=== PATIENT | female | born 1965 | race Caucasian/White ===

== ENCOUNTER 2022-11-26 13:21 | Outpatient (CLI) | payer MEDICARE, SELFPAY ==
--- NOTE | 2022-11-26 13:36 | US_ITS ---
WS: [id number] US transvaginal [id number] HISTORY: ABNORMAL VAGINAL BLEEDING/POSTMENOPAUSAL COMPARISON: None available. Uterus: 7.2 cm x 4.2 cm x 4.3 cm. Normal size anteverted uterus. No fibroid or mass. Endometrium: 0.8 cm. Endometrium is measuring slightly greater in size than appropriate for a postmen opausal patient. No mass or increased vascularity is identified. Neither ovary is identified. There are no adnexal masses. No free fluid in the pelvis. IMPRESSION: 1. Endometrium is measuring slightly greater than normal for a postmenopausal patient. With history o f abnormal vaginal bleeding direct visualization and biopsy should be performed. 2. Neither ovary is identified. No pelvic mass.
== END 2022-11-26 13:22 | disposition home or self-care (01) ==
PROVIDERS: PCP Family Medicine; Visit Provider Nurse Practitioner Family
DX: N95.0 Postmenopausal bleeding (principal)
CPT/HCPCS: 76830

== ENCOUNTER 2024-05-30 13:14 | Outpatient (CLI) | payer MEDICARE, SELFPAY ==
--- NOTE | 2024-05-30 13:16 | MM_ITS ---
WS: [id number] Bilateral screening 3D tomosynthesis digital mammogram, 05/30/2024 1:23 PM Clinical Data: SCREENING Comparison: 01/20/2023 Findings: No spiculated masses or clustered calcifications are seen. There are no secondary signs of carcinoma. MM/MM scr BI tomosynthesis [id number] Impression: Negative bilateral mammogram unchanged. Recommend annual screening mammograms. BIRADS: 1 - Negative. FOLLOW UP: 1 Year Follow-up DENSITY: There are scattered areas of fibroglandular density. The CAD plan checker was used
== END 2024-05-30 13:15 | disposition home or self-care (01) ==
PROVIDERS: PCP Family Medicine; Visit Provider Nurse Practitioner Family
DX: Z12.31 Encounter for screening mammogram for malignant neoplasm of breast (principal); R92.323 Mammographic fibroglandular density, bilateral breasts
CPT/HCPCS: 77063; 77067

== ENCOUNTER 2024-07-19 11:34 | Emergency (ER) | payer MEDICARE, SELFPAY ==
[2024-07-19] VITALS (14 sets, daily range): BP systolic 102–140; BP diastolic 50–91; PULSE 77–93; RESP 16–18; TEMP 36.7; O2SAT 95–98; BMI 41.1
--- NOTE | 2024-07-19 12:12 | CTR_ITS ---
PROCEDURE INFORMATION: Exam: CT Abdomen And Pelvis Without Contrast Exam date and time: 07/19/2024 12:37 PM Age: 58 years old Clinical indication: Abdominal pain; Localized; Right upper quadrant (ruq); Prior surgery; Surgery date: 6+ months; Surgery type: Appy; Ruq pain; Per PT, she has been told her gb needs to be removed but has hesitated to do so; Additional info: Abdominal pain, right TECHNIQUE: Imaging protocol: Computed tomography of the abdomen and pelvis without contrast. Radiation optimization: All CT scans at this facility use at least one of these dose optimization techniques: automated exposure control; mA and/or kV adjustment per patient size (includes targeted exams where dose is matched to clinical indication); or iterative reconstruction. COMPARISON: US transvaginal [id number] 11/26/2022 2:23 PM RADIATION DOSE METRICS: Total DLP (mGy-cm): 1096.8 FINDINGS: Lungs: Lung bases are clear. No pleural effusion. Liver: Normal. No mass. Gallbladder and biliary ducts: A 3 cm gallstone is noted in the gallbladder but the gallbladder wall shows no evidence of inflammation. Pancreas: Normal. No ductal dilation. Spleen: Normal. No splenomegaly. Adrenal glands: Normal. No mass. Kidneys and ureters: Normal. No hydronephrosis. Stomach and bowel: Unremarkable. No obstruction. No mucosal thickening. Appendix: There is a rounded 6.8 cm diameter collection of fluid and air within the right lower quadrant. There is surrounding inflammation. The collection lies at the expected location of the appendix but the appendix can not be identified. Intraperitoneal space: Unremarkable. No free air. No significant fluid collection. Vasculature: Unremarkable. No abdominal aortic aneurysm. Lymph nodes: Unremarkable. No enlarged lymph nodes. Urinary bladder: Unremarkable as visualized. Reproductive: Unremarkable as visualized. Bones/joints: Unremarkable. No acute fracture. Soft tissues: Unremarkable. CT/CT abdomen pelvis wo con [id number] IMPRESSION: 1. 6.8 cm right lower quadrant abscess most consistent with the appendiceal abscess 2. Cholelithiasis
[2024-07-19 12:22] LABS: Basophils # 0.1 10^3/uL (0.0-0.1); Basophils % 0.7 %; Eosinophils # 0.2 10^3/uL (0.0-0.8); Hematocrit 49.8 % (36-47); Lymphocytes # 2.5 10^3/uL (0.8-4.8); Lymphocytes % 16.9 %; Mean Corpuscular HGB Conc 32.9 g/dL (30-55); Mean Corpuscular Hemoglobin 32.8 pg (27-33); Mean Corpuscular Volume 99.6 fl (85-98); Mean Platelet Volume 8.4 fL (7.4-10.4); Monocytes # 0.8 10^3/uL (0.2-0.9); Monocytes % 5.6 %; Neutrophils # 11.11 10^3/uL (1.8-7.7); Neutrophils % 74.7 %; Nucleated Red Blood Cells % 0 %; Platelet Count 405 10^3/cmm (157-399); Red Cell Distribution Width 13.5 % (12.1-15.1); White Blood Count 14.88 10^3/uL (3.29-11.43)
[2024-07-19 12:37] LABS: Alanine Aminotransferase 24 U/L (0-33); Albumin Level 3.3 g/dL (3.5-5.2); Alkaline Phosphatase 130 U/L (35-105); Anion Gap 17.5 (5-19); Aspartate Amino Transferase 17 U/L (0-32); Blood Urea Nitrogen 9 mg/dL (6-20); Calcium 9.2 mg/dL (8.5-10.5); Carbon Dioxide 25 mmol/L (22-29); Chloride 99 mmol/L (98-107); Globulin 4.1 g/dL (1.3-4.6); Glomerular Filtration Rate 103.4 mL/min (90-130); Glucose 111 mg/dL (65-115); Lipase 27 U/L (13-60); Osmolality Calculated 283 mOsm/kg (285-295); Potassium 4.5 mmol/L (3.5-5.1); Sodium 137 mmol/L (136-145); Total Bilirubin 0.6 mg/dL (0.15-1.2); Total Protein 7.4 g/dL (6.6-8.7)
[2024-07-19] MEDS: sodium chloride 0.9% 1,000 ML 999 ML IV (12:44)
[2024-07-19] MEDS: morphine 4 mg/mL SDV 1 mL IVP (12:45)
[2024-07-19] MEDS: ondansetron 2 mg/ML SDV 2 mL 4 MG IVP (12:45)
--- NOTE | 2024-07-19 13:47 | PM.CONSULT ---
Providers/Reason For Consult Consulting Physician/Specialty*: General Surgery Reason for Consult*: Intra-abdominal abscess Primary Care Provider: Pastora Abrams DO History of Present Illness History of Present Illness Kaylee Alexander is a 58 year old female who presents to the hospital with 1 week of right lower quadrant abdominal pain associated with some chills no fever, she visited an outside doctor and was placed on antibiotics she finished her antibiotic course yesterday and after that the pain has gotten worse. On evaluation emergency department CT scan abdomen pelvis was done and the CT showed evidence of a large Omid cecal abscess likely consistent with a periappendiceal abscess. I was consulted for this finding Review of Systems General: Reports: 10 or more systems reviewed and unremarkable except in HPI and below Medications/Allergies Home Medications ?Medication ?Instructions ?Recorded ?Confirmed ?Last Taken ?Type aspirin 81 mg tablet,delayed 81 mg PO DAILY 01/25/23 01/25/23 Unknown History release (Adult Low Dose Aspirin) black cohosh root extract 40 mg 40 mg PO DAILY 01/25/23 01/25/23 Unknown History capsule buspirone 10 mg tablet 10 mg PO BID 01/25/23 01/25/23 Unknown History cyclobenzaprine 10 mg tablet 10 mg PO TID 01/25/23 01/25/23 Unknown History gabapentin enacarbil 300 mg 300 mg PO BID 01/25/23 01/25/23 Unknown History tablet,extended release phentermine 15 mg capsule 15 mg PO DAILY 01/25/23 01/25/23 Unknown History Allergies Allergy/AdvReac Type Severity Reaction Status Date / Time No Known Allergies Allergy Verified 01/25/23 13:31 PFSH Acute PFSH: Family History (Updated 01/12/23 @ 10:33 by Eden Kirk) Denies family history of Colon cancer Thyroid cancer Diabetes Heart disease Hyperlipidemia Breast cancer Hypertension Uterine cancer Stroke Vitals/I&O/Wt Last Vital Signs Temp 98.0 F 07/19/24 11:44 Pulse 79 07/19/24 13:37 Resp 18 07/19/24 12:45 BP 134/79 07/19/24 13:37 Pulse Ox 97 07/19/24 13:37 O2 Del Method Room Air 07/19/24 13:37 Weight last 48 hrs Weight 240 lb Physical Exam Narrative: Abdominal examination shows evidence of tenderness in the right lower quadrant and right flank there is no peritonitis at this moment, there is no rebound tenderness. Data 07/19/24 11:50 07/19/24 11:50 A&P Assessment and plan (1) Abscess, periappendiceal: Plan After complete history, physical examination and review of all available clinical data the following is my assessment. This is a 58-year-old female who presents to the hospital with a possible perforated appendicitis with abscess formation. Patient has extensive medical history and in addition to that when she was 15 years old she got an open appendectomy for a ruptured appendix, while we do not have the records for this procedure is highly likely that since appendix had rupture a complete appendectomy was not possible and we are dealing with appendicitis of the remanent part of the differential could also be a ruptured diverticulum of the cecum. Her white count is 14,000, currently vital signs are stable. With this findings our recommendation will be to proceed with interventional radiology drainage of the abscess and inpatient management with IV antibiotics. Unfortunately at this time we do not have immediate IR availability for drainage and therefore the recommendation will be for transfer to higher level of care for additional expertise with interventional radiology and subsequent management. In the interim I recommend that the patient is started on broad-spectrum antibiotics and fluids, she should be kept n.p.o. in anticipation for drainage as soon as she presents to outside hospital. At the moment of my evaluation patient is stable there is no contraindication for acute transfer. PDMP PDMP Reviewed: Not Reviewed Coding Level of Care Code Acute Code for Chg Fwd Diagnoses Abscess, periappendiceal K35.33
[2024-07-19] MEDS: piperacillin-tazobactam 3.375 GM in sodium chloride 0.9% (plus) 50 ML IV (13:51)
[2024-07-19] MEDS: vancomycin 1,500 MG/300 ML PIGGYBACK 200 MG IV (13:52)
--- NOTE | 2024-07-19 15:32 | ED_ITS ---
HPI - Abdominal Pain 2 General: Chief Complaint: Abdominal Pain Stated Complaint: gallbladder attack Time Seen by Provider: 07/19/24 11:50 History of Present Illness: This patient is a 58-year-old white female who presents to the emergency department complaining of right-sided abdominal pain that radiates around to the back. She states this started a week ago. She has not had any associated nausea or vomiting. She has had some diarrhea as well as some constipation. No dysuria. She had some blood in her urine last week and was treated. She states she has been treated for UTI. No fever. Past surgical history includes an appendectomy. Associated Symptoms: Reports constipation and diarrhea Related Data Home Medications ?Medication ?Instructions ?Recorded ?Confirmed aspirin 81 mg tablet,delayed 81 mg PO DAILY 01/25/23 0 07/19/24 release (Adult Low Dose Aspirin) cyclobenzaprine 10 mg tablet 10 mg PO TID 01/25/23 albuterol sulfate 90 mcg/actuation 2 puff inhalation Q 6H PRN 07/19/24 07/19/24 aerosol inhaler Shortness Of Breath atorvastatin 20 mg tablet 20 mg PO DAILY 07/19/2406/22 buspirone 15 mg tablet 15 mg PO TID 07/19/24 empagliflozin 25 mg tablet 25 mg PO QAM 07/19/2407/19 (Jardiance) gabapentin 300 mg capsule 300 mg PO QID 07/19/2407/19 guanfacine 2 mg tablet,extended 2 mg PO DAILY 07/19/24 07/19/24 release 24 hr lisinopril 20 mg tablet 20 mg PO DAILY 07/19/2406/22 phentermine 37.5 mg capsule 37.5 mg PO DAILY 07/19/24 07/19/24 Allergies Allergy/AdvReac Type Severity Reaction Status Date / Time No Known Allergies Allergy Verified 01/25/23 13:31 Review of Systems 2 General: Reports: 10 or more systems reviewed and unremarkable except in HPI and below GI: Reports: abdominal pain, diarrhea and constipation PFSH ED 2 PFSH: Family History (Updated 01/12/23 @ 10:33 by Eden Kirk) Denies family history of Colon cancer Thyroid cancer Diabetes Heart disease Hyperlipidemia Breast cancer Hypertension Uterine cancer Stroke Physical Exam 2 Const: COMMON NORMALS: no acute distress, patient oriented x3 and no limitations GENERAL APPEARANCE: cooperative and comfortable HENMT: COMMON NORMALS: normocephalic, atraumatic, Normal nasal mucous membranes and turbinates present, moist oral mucous membranes and oropharynx normal HEAD & SCALP: normal to inspection, normocephalic and atraumatic F JAYLA & SINUS: normal facial exam NOSE: Normal nasal mucous membranes and turbinates present Eye: COMMON NORMALS: Equal, round and reactive pupils present, EOMs intact bilaterally and conjunctivae normal GENERAL EYE: appearance normal, both eyes and all related structures CONJUNCTIVA: Yes conjunctivae normal PUPIL: Yes Equal, round and reactive pupils present Neck/C-Spine: COMMON NORMALS: supple and no JVD Chest: COMMONS NORMALS: normal inspection of the chest Resp: COMMON NORMALS: normal respiratory effort and clear to auscultation bilaterally AUSCULTATION: clear to auscultation bilaterally Cardio: COMMON NORMALS: no JVD, regular rate, regular rhythm, No gallops present (Cardio), No murmurs present (Cardio) and No rub (Cardio) RATE: r egular rate RHYTHM: regular rhythm GI: COMMON NORMALS: Soft to palpation AUSCULTATION: Yes normoactive bowel sounds PALPATION: Yes Soft to palpation, Yes Tenderness to palpation present (GI) (Mid right), No Guarding due to palpation present (GI) and No Rebound tenderness present : COMMON NORMALS: Yes no CVA tenderness BLADDER/KIDNEY EXAM: Yes no CVA tenderness Back/Pelvis: COMMON NORMALS: no CVA tenderness and thoracic and lumbar spine normal to inspection Extremity: COMMON NORMALS: normal to inspection Neuro: COMMON NORMALS: patient oriented x3 and CN's II-XII intact bilaterally Psych: COMMON NORMALS: mental status grossly normal, Normal thought process present and cooperative THOUGHT PROCESS: Normal thought process present Skin: COMMON NORMALS: no rashes or lesions noted, turgor normal and no jaundice GENERAL SKIN EXAM: no rashes or lesions noted and turgor normal Course 2 Vital Signs: Vital signs: Vital Signs Temperature 98.0 F 07/19/24 11:44 Pulse Rate 80 07/19/24 18:00 Respiratory Rate 16 07/19/24 18:00 Blood Pressure 102/50 07/19/24 18:00 Pulse Oximetry 97 07/19/24 18:00 Oxygen Delivery Me thod Room Air 07/19/24 18:00 MDM - Abdominal Pain Medical Decision Making CBC reveals a white blood cell count of 14.9. CMP was normal. CT scan of the abdomen pelvis was read by the radiologist. There is an abscess in the right lower quadrant in the area of what would be the appendix but obviously the appendix is gone due to her prior appendectomy. Radiologist read this as an appendiceal abscess. 6.8 cm. I discussed the case with Dr. Thompson, general surgeon. He discussed the case with the radiologist but we do not have IR available here. He recommends transferring the patient. Patient would like to go to [facility]. I discussed the case with Shivani with the hospitalist service. She has accepted the patient on behalf of Dr. Garcia. Patient will be transferred as soon as the bed is available and we have transportation. Patient has gotten a liter of fluid, Zofran, morphine, vancomycin and Zosyn. She is stable. Lab Data 07/19/24 11:50 07/19/24 11:50 Labs/Radiology: Radiology Impressions Abdomen/Pelvis CT 07/19/24 12:12 IMPRESSION: 1. 6.8 cm right lower quadrant abscess most consistent with the appendiceal abscess 2. Cholelithiasis ADDENDUM: 07/19/24 1300 COMMENT: THIS REPORT CONTAINS FINDINGS THAT MAY BE CRITICAL TO PATIENT CARE. The exam findings were verbally communicated by me to NINA MCMAHON via telephone conference at 12:59 PM CDT on 07/19/2024. The findings were acknowledged and understood. Laboratory Results WBC 14.88 10^3/uL (3.29-11.43) H 07/19/24 11:50 RBC 5.00 10^6/uL (3.85-5.65) 07/19/24 11:50 Hgb 16.40 g/dL (11.27-16.99) 07/19/24 11:50 Hct 49.8 % (36-47) H 07/19/24 11:50 MCV 99.6 fl (85-98) H 07/19/24 11:50 MCH 32.8 pg (27-33) 07/19/24 11:50 MCHC 32.9 g/dL (30-55) 07/19/24 11:50 RDW 13.5 % (12.1-15.1) 07/19/24 11:50 Plt Count 405 10^3/cmm (157-399) H 07/19/24 11:50 MPV 8.4 fL (7.4-10.4) 07/19/24 11:50 Neut % (Auto) 74.7 % 07/19/24 11:50 Lymph % (Auto) 16.9 % 07/19/24 11:50 [place] % (Auto) 5.6 % 07/19/24 11:50 Eos % (Auto) 1.0 % 07/19/24 11:50 Baso % (Auto) 0.7 % 07/19/24 11:50 Neut # (Auto) 11.11 10^3/uL (1.8-7.7) H 07/19/24 11:50 Lymph # (Auto) 2.5 10^3/uL (0.8-4.8) 07/19/24 11:50 [place] # (Auto) 0.8 10^3/uL (0.2-0.9) 07/19/24 11:50 Eos # (Auto) 0.2 10^3/uL (0.0-0.8) 07/19/24 11:50 Baso # (Auto) 0.1 10^3/uL (0.0-0.1) 07/19/24 11:50 Nucleated RBC % (auto) 0 % 07/19/24 11:50 Nucleated RBCs # 0.0 /100WBC 07/19/24 11:50 Sodium 137 mmol/L (136-145) 07/19/24 11:50 Potassium 4.5 mmol/L (3.5-5.1) 07/19/24 11:50 Chloride 99 mmol/L (98-107) 07/19/24 11:50 Carbon Dioxide 25 mmol/L (22-29) 07/19/24 11:50 Anion Gap 17.5 (5-19) 07/19/24 11:50 BUN 9 mg/dL (6-20) 07/19/24 11:50 Creatinine 0.6 mg/dL (0.5-0.9) 07/19/24 11:50 GFR Calculation 103.4 mL/min (90-130) 07/19/24 11:50 Glucose 111 mg/dL (65-115) 07/19/24 11:50 Calculated Osmolality 283 mOsm/kg (285-295) L 07/19/24 11:50 Calcium 9.2 mg/dL (8.5-10.5) 07/19/24 11:50 Total Bilirubin 0.6 mg/dL (0.15-1.2) 07/19/24 11:50 AST 17 U/L (0-32) 07/19/24 11:50 ALT 24 U/L (0-33) 07/19/24 11:50 Alkaline Phosphatase 130 U/L (35-105) H 07/19/24 11:50 Total Protein 7.4 g/dL (6.6-8.7) 07/19/24 11:50 Albumin 3.3 g/dL (3.5-5.2) L 07/19/24 11:50 Globulin 4.1 g/dL (1.3-4.6) 07/19/24 11:50 Lipase 27 U/L (13-60) 07/19/24 11:50 Urine Color Yellow (Yellow) 07/19/24 15:41 Urine Appearance Clear (CLEAR) 07/19/24 15:41 Urine pH 5.5 (5-7) 07/19/24 15:41 Ur Specific [place] 1.013 (1.005-1.030) 07/19/24 15:41 Urine Protein Negative (Negative) 07/19/24 15:41 Urine Glucose (UA) Negative (Normal) 07/19/24 15:41 Urine Ketones Trace (Negative) 07/19/24 15:41 Urine Blood Negative (Negative) 07/19/24 15:41 Urine Nitrate Negative (Negative) 07/19/24 15:41 Urine Bilirubin Negative (Negative) 07/19/24 15:41 Urine Urobilinogen 0.2 mg/dL (Negative) 07/19/24 15:41 Ur Leukocyte Esterase Negative (Negative) 07/19/24 15:41 Urine RBC 0-2 /hpf (0-2) 07/19/24 15:41 Urine WBC 0-5 /hpf (0-5) 07/19/24 15:41 Ur Squamous Epith Cells 0-5 /hpf (0-5) 07/19/24 15:41 Amorphous Sediment Not Reportable 07/19/24 15:41 Urine Bacteria None seen /hpf (NONE) 07/19/24 15:41 Hyaline Casts 0.40 /lpf 07/19/24 15:41 All radiology interpretation(s) finalized by discharge Discharge Plan Discharge Condition: Stable Prescriptions: No Action cyclobenzaprine 10 mg tablet 10 mg PO TID aspirin [Adult Low Dose Aspirin] 81 mg tablet,delayed release (DR/EC) 81 mg PO DAILY atorvastatin 20 mg tablet 20 mg PO DAILY lisinopril 20 mg tablet 20 mg PO DAILY gabapentin 300 mg capsule 300 mg PO QID albuterol sulfate 90 mcg/actuation HFA aerosol inhaler 2 puff INHALATION Q6H PRN (Reason: Shortness Of Breath) phentermine 37.5 mg capsule 37.5 mg PO DAILY buspirone 15 mg Tablet 15 mg PO TID guanfacine 2 mg tablet extended release 24 hr 2 mg PO DAILY Jardiance 25 mg tablet 25 mg PO QAM Referrals: Pastora Abrams DO [Primary Care Provider, Family Practice] Print Language: Chinese Coding Level of Care Code ED Glass [employer] Engineer for Angelg Dina
[2024-07-19 15:56] LABS: Bilirubin Urine Negative (Negative); Blood Urine Negative (Negative); Glucose Urine UA Negative (Normal); Ketones Urine Trace (Negative); Leukocyte Esterase Urine Negative (Negative); Nitrate Urine Negative (Negative); Protein Urine Negative (Negative); Specific Gravity, Urine 1.013 (1.005-1.030); Urine Appearance Clear (CLEAR); Urine Color Yellow (Yellow); Urobilinogen Urine 0.2 mg/dL (Negative); pH Urine 5.5 (5-7)
[2024-07-19 16:04] LABS: Add Urine Microscopic? YES; Bacteria Urine None Seen /hpf; RBC Urine 0-2 /hpf (0-2); Squamous Epithelial Cell Urine 0-5 /hpf (0-5); WBC Urine 0-5 /hpf (0-5)
[2024-07-19] MEDS: nicotine 21 mg Patch 1 PATCH TRANSDERMA (17:00)
[2024-07-19] MEDS: HYDROmorphone 0.5 MG/0.5 ML INJ IVP ×2 (17:06→19:02)
--- NOTE | 2024-07-19 18:26 | PC.NURSE ---
pt NPO. aware.
--- NOTE | 2024-07-19 18:32 | PC.NURSE ---
Pt report called to [facility], pt has bed 3104-2 3A. PT report called to Lana Townsend RN at [facility].
[2024-07-19] MEDS: lactated ringers 1,000 ML 125 ML IV (19:03)
== END 2024-07-19 19:19 | disposition short-term general hospital (02) ==
PROVIDERS: Emergency Provider Emergency Medicine; PCP Family Medicine
DX: K35.33 Acute appendicitis with perforation, localized peritonitis, and gangrene, with abscess (principal); K80.20 Calculus of gallbladder without cholecystitis without obstruction; Z79.82 Long term (current) use of aspirin
CPT/HCPCS: 74176; 80053; 81001; 83690; 85025; 96365; 96366; 96367; 96375; 96376; 99285; J1171; J2270; J2405; J2543; J3370; J7030; J7120; J9999